=== PATIENT | female | born 1960 | race Caucasian/White ===

== ENCOUNTER 2023-12-31 15:13 | Observation (INO) ==
[2023-12-31] MEDS ORDERED: NovoLIN R (or HumuLIN R) SUBCUT PRN (16:10)
[2023-12-31 17:08] LABS: BASOPHILS # (AUTO) 0.1 X10^3/uL (0.0-0.1); BASOPHILS % (AUTO) 0.9 % (0.2-1.0); EOSINOPHILS # (AUTO) 0.4 x10^3/uL (0.0-0.2); EOSINOPHILS % (AUTO) 4.6 % (0.9-2.9); LYMPHOCYTES # (AUTO) 3.2 X10^3/uL (1.3-2.9); LYMPHOCYTES % (AUTO) 36.2 % (21.0-51.0); MEAN CORPUSCULAR HEMOGLOBIN 31.7 pg (27.0-34.0); MEAN CORPUSCULAR HGB CONC 34.3 g/dL (33.0-35.0); MEAN CORPUSCULAR VOLUME 92.7 fL (80.0-100.0); MEAN PLATELET VOLUME 8.2 fL (7.4-11.0); MONOCYTES # (AUTO) 0.5 x10^3/uL (0.3-0.8); MONOCYTES % (AUTO) 6.2 % (0.0-13.0); NEUTROPHILS # (AUTO) 4.6 x10^3/uL (2.2-4.8); NEUTROPHILS % (AUTO) 52.1 % (42.0-75.0); PLATELET COUNT 296 X10^3/uL (150.0-450.0); RED CELL DISTRIBUTION WIDTH 14.6 % (11.6-16.5); WHITE BLOOD COUNT 8.8 X10^3/uL (3.6-10.0)
[2023-12-31 17:24] LABS: BLOOD UREA NITROGEN 13 mg/dL (7-18); CALCIUM 9.7 mg/dL (8.5-10.1); CARBON DIOXIDE 27.8 mmol/L (21-32); CHLORIDE 101 mmol/L (98-107); COR NA(FOR HYPERGLY) 139 mmol/L (136-145); CREATININE 1.17 mg/dL (0.55-1.02); GLUCOSE 117 mg/dL (65-99); POTASSIUM 3.6 mmol/L (3.5-5.1); SODIUM 139 mmol/L (136-145); eGFR NON BLACK RACES 50 (>60)
[2023-12-31] MEDS: LR 1,000 ML IV 1,000 ML IV SCH (17:40)
[2023-12-31] MEDS: DILAUDID INJ IVP PRN (18:26)
--- NOTE | 2023-12-31 19:30 | CT ---
EXAM: CTA AORTA WITH RUNOFF HISTORY: Ischemic left leg. pt had vascular surgery last week; COMPARISON: August 10, 2023 TECHNIQUE: Axial CT images of the abdomen, pelvis and lower extremities were obtained prior to and after the ad ministration of mL IV contrast during the arterial phase. Images were reformatted with a 3D angiograp hic technique for further evaluation. Radiation dose: 1422.12 mGy-cm total DLP FINDINGS: Aorta: Atherosclerotic changes with no aneurysm. No clinically significant stenosis or occlusion. Mesenteric arteries/Celiac trunk: No clinically significant stenosis, occlusion or aneurysm. Renal arteries: No clinically significant stenosis, occlusion or aneurysm. Right iliac arteries: Atherosclerotic changes. No clinically significant stenosis, occlusion or aneur ysm. Stent in the right external iliac artery. Left iliac arteries: Atherosclerotic changes. No clinically significant stenosis, occlusion or aneury sm. Right femoral arteries/popliteal artery: Atherosclerotic changes. No clinically significant stenosis, occlusion or aneurysm. Left femoral arteries/popliteal artery: Atherosclerotic changes. Left common femoral artery is paten t. Age indeterminate occlusion of the left superficial femoral artery which has occurred since the p revious exam. Reconstitution at the popliteal hiatus. Right infrapopliteal arteries: Atherosclerotic changes. No occlusion or aneurysm. 3 vessel runoff. Left infrapopliteal arteries: Atherosclerotic changes. Age indeterminate occlusion of the left peron eal artery which has occurred since the previous exam. Lung bases are clear. No acute osseous abnormality. Stomach and proximal small bowel appear normal. Solid visceral organs of the upper abdomen are unremarkable. Status post cholecystectomy. No intra or extrahepatic biliary duct dilatation. IVC filter in place. Homogeneous enhancement of the kidneys without hydronephrosis or hydroureter. No urinary calculus identified. Urinary bladder is unremarkable. Colonic diverticulosis without diverticulitis. Otherwise, unremarkable appearance of the small and large bowel. No evidence of acute appendicitis. Status post hysterectomy. No pneumoperitoneum. No free intra-abdominal fluid. No adenopathy. IMPRESSION: 1. 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 Reconstitution at the popliteal hiatus. 2. Age indeterminate occlusion of the left peroneal artery which has occurred since the previous exam . 3. No acute intra-abnormality identified. 4. Colonic diverticulosis without diverticulitis. THIS IS AN ELECTRONICALLY VERIFIED FINAL REPORT 12/31/2023 7:26 PM - Electronically signed by Pb Oro MD
[2023-12-31] MEDS: SNACK - Diabetic Appropriate PO SCH (20:50)
[2023-12-31] MEDS: LOVENOX INJ 100 MG SYR SC SCH (20:52)
[2023-12-31] MEDS: OMNIPAQUE 350 mg/mL 50 mL BTL 50 ML ONE (21:31)
[2023-12-31] MEDS: OMNIPAQUE 350 mg/mL 100 mL BTL 100 ML ONE (21:31)
[2023-12-31] MEDS: NS 100 ML IV 100 ML ONE (21:31)
[2024-01-01] MEDS: HIBICLENS WASH EXT ONE (05:28)
[2024-01-01] MEDS: NOZIN NASAL SANITIZER TP ONE (05:28)
[2024-01-01] MEDS: ZOFRAN INJ 4 MG VIAL IVP PRN (07:55)
[2024-01-01] MEDS: NS 1,000 ML IV 1,000 ML ONE (14:15)
[2024-01-01] MEDS: ANCEF VIAL 1 GRAM ONE (15:05)
[2024-01-01] MEDS: NS 100 ML IV 100 ML ONE (15:05)
[2024-01-01] MEDS: OFIRMEV IV 1000 MG VIAL 1,000 MG/100 ML VIAL IV ONE (15:16)
[2024-01-01] MEDS ORDERED: KETAMINE HCL ONE (15:16)
[2024-01-01] MEDS: FENTANYL VIAL INJ 100 mcg ONE (15:16)
[2024-01-01] MEDS: PEPCID 20 MG VIAL ONE (15:16)
[2024-01-01] MEDS: ZOFRAN INJ 4 MG VIAL ONE (15:16)
[2024-01-01] MEDS: PRECEDEX INJ VIAL ONE (15:16)
[2024-01-01] MEDS ORDERED: XYLOCAINE 2 % (PLAIN) ONE (15:16)
[2024-01-01] MEDS: VERSED ONE (15:16)
[2024-01-01] MEDS: DIPRIVAN VIAL 20 ML ONE ×2 (15:16→16:26)
[2024-01-01] MEDS: DECADRON INJ ONE (15:27)
[2024-01-01] MEDS: EPHEDRINE SULFATE INJ ONE (15:31)
[2024-01-01] MEDS: VISIPAQUE 50 ML ONE (15:35)
[2024-01-01] MEDS: HEPARIN SODIUM IN D5W 75,000 UNITS/1,500 ML BAG ONE (15:35)
[2024-01-01] MEDS: VISIPAQUE 100 ML ONE (15:35)
[2024-01-01] MEDS: MARCAINE 0.5% ONE (15:35)
[2024-01-01] MEDS: HEPARIN SODIUM INJ 5000 UNITS ONE ×2 (15:39→16:38)
[2024-01-01] MEDS: NEO-SYNEPHRINE INJ ONE (15:46)
[2024-01-01] MEDS: PROTAMINE SULFATE 50 MG VIAL ONE (17:00)
--- NOTE | 2024-01-01 17:15 | OR.IMMED ---
IMMEDIATE POST-OP NOTE Immediate Post-Op Note Date of surgery/procedure: 01/01/24 Pre-Op Diagnosis: Critical ischemia left leg Post-Op Diagnosis: same Procedure: diagnostic aortogram, diagnostic arteriogram left leg, atherectomy and sdrug coated balloon angioplasty of the entire left superficial femoral artery, angioplasty and tire left peroneal artery Description of Procedure: dictated Surgeon/Technology Officer: Sean Findings: completely occluded left superficial artery from just beyond its takeoff down to the adductor canal, occluded left posterior tibial artery. significant disease of both anterior tibial and peroneal arteries all the way to the ankle but the vessels do go to the ankle Estimated Blood Loss: 150 cc Complications: none Progress Notes: to floor , dicscharge home later tonight
[2024-01-01] MEDS ORDERED: DILAUDID INJ IVP PRN (17:20)
[2024-01-01] MEDS ORDERED: BENADRYL INJ 50 MG VIAL IVP PRN (17:20)
[2024-01-01] MEDS ORDERED: ZOFRAN INJ 4 MG VIAL IVP PRN (17:20)
[2024-01-01] MEDS: TORADOL 30 MG VIAL ONE (17:24)
[2024-01-01] MEDS: DUONEB 0.5 MG/3 MG (3 mL) NEB ONE (17:42)
--- NOTE | 2024-01-01 18:12 | EKG ---
Test Reason : chest pain Blood Pressure : */* mmHG Vent. Rate : 84 BPM Atrial Rate : 84 BPM P-R Int : 178 ms QRS Dur : 82 ms QT Int : 382 ms P-R-T Axes : 82 52 75 degrees QTc Int : 451 ms Sinus rhythm with premature supraventricular complexes Otherwise normal ECG Confirmed by Daniel Sanchez MD ([id number]) on 01/02/2024 7:39:35 AM Referred By: Confirmed By: Daniel Sanchez MD
[2024-01-01 20:21] VITALS: BP 93/51; PULSE 91; RESP 18; TEMP 98; O2SAT 97
--- NOTE | 2024-01-01 21:01 | W.DIS.FURT ---
Summary of Discharge Discharge Summary of Date Date of Exam: 01/01/24 Admission Date Date of Admission: 12/31/23 Admission Diagnosis Hospital Course: 63 year old female who has had bilateral lower extremity arterial interventions. The left leg was done in October and the right leg was done approximately 1 week ago. In follow up yesterday in the office the patient c/o severe left leg pain. The right leg was warm with good doppler signals at the ankle. Patient was admitted and CT angiogram showed complete occlusion of the left superficial femoral artery beginning at it's takeoff With reconstitution of the popliteal artery with disease of the left posterior tibial and peroneal arteries. In October the patient had had atherectomy and Drug coated balloon angioplasty of the distal left superficial femoral artery and popliteal artery with peroneal artery balloon angioplasty. Patient was admitted and placed on subcutaneous Lovenox at a therapeutic dose. Patient taken to the operating suite today where she underwent atherectomy and drug coated balloon angioplasty of the entire left superficial artery and angioplasty of the left peroneal artery. Patient had complained have some chest pain in the recovery room. EKG was normal. Cardiac enzymes were normal. Chest X-ray was normal and this pain resolved. She is tolerating a diet will be discharged today on her usual medications to include aspirin daily. She Will Follow up with me in 1 week. Vital Signs: Vital Signs (72 hours) 12/31/23 17:01 12/31/23 16:27 12/31/23 16:30 Temperature 98.3 F Pulse Rate Pulse Rate [Right Brachial] 89 Respiratory Rate 20 Blood Pressure Blood Pressure [Left Arm] Blood Pressure [Right Arm] 164/95 O2 Sat by Pulse Oximetry 100 Oxygen Delivery Method Room Air Room Air Room Air Oxygen Flow Rate FIO2% 12/31/23 18:26 12/31/23 18:56 12/31/23 19:00 Temperature Pulse Rate Pulse Rate [Right Brachial] Respiratory Rate 20 21 Blood Pressure Blood Pressure [Left Arm] Blood Pressure [Right Arm] O2 Sat by Pulse Oximetry Oxygen Delivery Method Room Air Oxygen Flow Rate FIO2% 12/31/23 20:52 12/31/23 23:19 12/31/23 21:22 Temperature Pulse Rate Pulse Rate [Right Brachial] Respiratory Rate 21 20 19 Blood Pressure Blood Pressure [Left Arm] Blood Pressure [Right Arm] O2 Sat by Pulse Oximetry Oxygen Delivery Method Oxygen Flow Rate FIO2% 12/31/23 20:00 01/01/24 00:00 12/31/23 23:49 Temperature 98.1 F 98.2 F Pulse Rate Pulse Rate [Right Brachial] 73 76 Respiratory Rate 18 15 18 Blood Pressure Blood Pressure [Left Arm] 123/84 Blood Pressure [Right Arm] 117/59 O2 Sat by Pulse Oximetry 100 97 Oxygen Delivery Method Room Air Room Air Oxygen Flow Rate FIO2% 01/01/24 03:25 01/01/24 05:27 01/01/24 04:00 Temperature 98.1 F Pulse Rate Pulse Rate [Right Brachial] 77 Respiratory Rate 22 20 18 Blood Pressure Blood Pressure [Left Arm] 115/73 Blood Pressure [Right Arm] O2 Sat by Pulse Oximetry 98 Oxygen Delivery Method Room Air Oxygen Flow Rate FIO2% 01/01/24 03:55 01/01/24 05:57 01/01/24 07:00 Temperature Pulse Rate Pulse Rate [Right Brachial] Respiratory Rate 19 20 Blood Pressure Blood Pressure [Left Arm] Blood Pressure [Right Arm] O2 Sat by Pulse Oximetry Oxygen Delivery Method Room Air Oxygen Flow Rate FIO2% 01/01/24 07:55 01/01/24 10:59 01/01/24 13:12 Temperature Pulse Rate Pulse Rate [Right Brachial] Respiratory Rate 20 20 20 Blood Pressure Blood Pressure [Left Arm] Blood Pressure [Right Arm] O2 Sat by Pulse Oximetry Oxygen Delivery Method Oxygen Flow Rate FIO2% 01/01/24 08:00 01/01/24 08:25 01/01/24 12:00 Temperature 97.8 F 98.0 F Pulse Rate Pulse Rate [Right Brachial] 72 70 Respiratory Rate 19 20 19 Blood Pressure Blood Pressure [Left Arm] 105/57 112/61 Blood Pressure [Right Arm] O2 Sat by Pulse Oximetry 98 97 Oxygen Delivery Method Room Air Room Air Oxygen Flow Rate FIO2% 01/01/24 11:29 01/01/24 14:25 01/01/24 13:42 Temperature 97.1 F L Pulse Rate 79 Pulse Rate [Right Brachial] Respiratory Rate 20 18 20 Blood Pressure 122/71 Blood Pressure [Left Arm] Blood Pressure [Right Arm] O2 Sat by Pulse Oximetry 98 Oxygen Delivery Method Room Air Oxygen Flow Rate FIO2% 01/01/24 17:24 01/01/24 17:12 01/01/24 17:17 Temperature 97.1 F L Pulse Rate 86 83 Pulse Rate [Right Brachial] Respiratory Rate 16 18 18 Blood Pressure 126/69 Blood Pressure [Left Arm] Blood Pressure [Right Arm] O2 Sat by Pulse Oximetry 100 100 Oxygen Delivery Method Nasal Cannula Nasal Cannula Oxygen Flow Rate FIO2% 01/01/24 17:22 01/01/24 17:27 01/01/24 17:32 Temperature Pulse Rate 83 86 86 Pulse Rate [Right Brachial] Respiratory Rate 18 18 18 Blood Pressure Blood Pressure [Left Arm] Blood Pressure [Right Arm] O2 Sat by Pulse Oximetry 100 100 100 Oxygen Delivery Method Nasal Cannula Nasal Cannula Nasal Cannula Oxygen Flow Rate FIO2% 01/01/24 17:37 01/01/24 17:42 01/01/24 18:14 Temperature Pulse Rate 86 86 Pulse Rate [Right Brachial] Respiratory Rate 18 18 20 Blood Pressure 104/58 Blood Pressure [Left Arm] Blood Pressure [Right Arm] O2 Sat by Pulse Oximetry 100 100 Oxygen Delivery Method Nasal Cannula Nasal Cannula Oxygen Flow Rate FIO2% 01/01/24 18:10 01/01/24 18:05 01/01/24 18:20 Temperature 97.9 F 97.9 F Pulse Rate Pulse Rate [Right Brachial] 94 H 91 H Respiratory Rate 20 20 Blood Pressure Blood Pressure [Left Arm] Blood Pressure [Right Arm] 113/81 96/55 O2 Sat by Pulse Oximetry 100 98 Oxygen Delivery Method Nasal Cannula Oxygen Flow Rate 2 FIO2% 01/01/24 18:35 01/01/24 18:44 01/01/24 18:50 Temperature 97.9 F Pulse Rate Pulse Rate [Right Brachial] 95 H 93 H Respiratory Rate 20 19 19 Blood Pressure Blood Pressure [Left Arm] Blood Pressure [Right Arm] 93/63 96/55 O2 Sat by Pulse Oximetry 95 98 Oxygen Delivery Method Oxygen Flow Rate FIO2% 01/01/24 19:05 01/01/24 20:05 Temperature 98.0 F Pulse Rate Pulse Rate [Right Brachial] 103 H 91 H Respiratory Rate 21 18 Blood Pressure Blood Pressure [Left Arm] Blood Pressure [Right Arm] 93/59 93/51 O2 Sat by Pulse Oximetry 98 97 Oxygen Delivery Method Oxygen Flow Rate FIO2% Labs: Laboratory Last Values WBC 8.8 X10^3/uL (3.6-10.0) 12/31/23 16:54 RBC 4.10 X10^6/uL (3.5-5.4) 12/31/23 16:54 Hgb 13.0 g/dL (12.0-16.0) 12/31/23 16:54 Hct 38.0 % (36.0-47.0) 12/31/23 16:54 MCV 92.7 fL (80.0-100.0) 12/31/23 16:54 MCH 31.7 pg (27.0-34.0) 12/31/23 16:54 MCHC 34.3 g/dL (33.0-35.0) 12/31/23 16:54 RDW 14.6 % (11.6-16.5) 12/31/23 16:54 Plt Count 296 X10^3/uL (150.0-450.0) 12/31/23 16:54 MPV 8.2 fL (7.4-11.0) 12/31/23 16:54 Neut % (Auto) 52.1 % (42.0-75.0) 12/31/23 16:54 Lymph % (Auto) 36.2 % (21.0-51.0) 12/31/23 16:54 [place] % (Auto) 6.2 % (0.0-13.0) 12/31/23 16:54 Eos % (Auto) 4.6 % (0.9-2.9) H 12/31/23 16:54 Baso % (Auto) 0.9 % (0.2-1.0) 12/31/23 16:54 Neut # (Auto) 4.6 x10^3/uL (2.2-4.8) 12/31/23 16:54 Lymph # (Auto) 3.2 X10^3/uL (1.3-2.9) H 12/31/23 16:54 [place] # (Auto) 0.5 x10^3/uL (0.3-0.8) 12/31/23 16:54 Eos # (Auto) 0.4 x10^3/uL (0.0-0.2) H 12/31/23 16:54 Baso # (Auto) 0.1 X10^3/uL (0.0-0.1) 12/31/23 16:54 Absolute Nucleated RBC 0.0 /100WBC 12/31/23 16:54 Sodium 139 mmol/L (136-145) 12/31/23 16:54 Corrected Sodium 139 mmol/L (136-145) 12/31/23 16:54 Potassium 3.6 mmol/L (3.5-5.1) 12/31/23 16:54 Chloride 101 mmol/L (98-107) 12/31/23 16:54 Carbon Dioxide 27.8 mmol/L (21-32) 12/31/23 16:54 BUN 13 mg/dL (7-18) 12/31/23 16:54 Creatinine 1.17 mg/dL (0.55-1.02) H 12/31/23 16:54 Est GFR (MDRD) Af Amer > 60 (>60) 12/31/23 16:54 Est GFR (MDRD) Non-Af 50 (>60) L 12/31/23 16:54 Glucose 117 mg/dL (65-99) H 12/31/23 16:54 Calcium 9.7 mg/dL (8.5-10.1) 12/31/23 16:54 Creatine Kinase 94 Units/L (26-192) 01/01/24 17:41 Troponin I High Sens 9.2 ng/L (4.0-60.0) 01/01/24 17:41 Reason For Visit: CRITICAL ISCHEMIA TO PTS LLE Discharge Date Discharge Date: 01/01/24 Discharge Diagnosis All Active Problems (Updated 01/01/24 @ 20:59 by Gentry Estrada) Atherosclerosis of pam[place]key arteries of extremities with rest pain, left leg (Acute) Uncontrolled type 2 diabetes mellitus (Acute) Abdominal pain (Acute) Abnormal weight loss (Acute) Discomfort of vagina (Acute) Allergic reaction (Acute) Pruritus (Acute) Plan of Treatment: Continue with present treatment and follow up plan. Pt is to keep follow up appointment as instructed and take medications as ordered. Discharge Medications Discharge Medications: No Known Allergies Allergy (Verified 11/01/23 09:37) CONTINUE taking the following medications aspirin 81 mg tablet 81 mg PO QDAY 12/31/23 [History] glimepiride 2 mg tablet 2 mg PO QAM 12/31/23 [History] glimepiride 4 mg tablet 4 mg PO QAM 12/31/23 [History] semaglutide 0.25 mg or 0.5 mg (2 mg/3 mL) subcutaneous pen injector (Finco) 0.25 mg subcut QWEEK 12/31/23 [History] Discharge Disposition Assessment: hospital course Discharge Plan Discharge Plan Hospital Course: 63 year old female who has had bilateral lower extremity arterial interventions. The left leg was done in October and the right leg was done approximately 1 week ago. In follow up yesterday in the office the patient c/o severe left leg pain. The right leg was warm with good doppler signals at the ankle. Patient was admitted and CT angiogram showed complete occlusion of the left superficial femoral artery beginning at it's takeoff With reconstitution of the popliteal artery with disease of the left posterior tibial and peroneal arteries. In October the patient had had atherectomy and Drug coated balloon angioplasty of the distal left superficial femoral artery and popliteal artery with peroneal artery balloon angioplasty. Patient was admitted and placed on subcutaneous Lovenox at a therapeutic dose. Patient taken to the operating suite today where she underwent atherectomy and drug coated balloon angioplasty of the entire left superficial artery and angioplasty of the left peroneal artery. Patient had complained have some chest pain in the recovery room. EKG was normal. Cardiac enzymes were normal. Chest X-ray was normal and this pain resolved. She is tolerating a diet will be discharged today on her usual medications to include aspirin daily. She Will Follow up with me in 1 week. Patient Disposition: 01 HOME, SELF-CARE Condition: Stable Health Concerns: Post Hospitalization: new medications and changes needed to prevent readmission or further decline. Pt educated and given instructions on all concerns. Care Plan Goals: see hospitalm course Plan of Treatment: Continue with present treatment and follow up plan. Pt is to keep follow up appointment as instructed and take medications as ordered. Assessment: hospital course Prescription drug monitoring program results: PDMP reviewed with concerns identified Prescriptions: Continued glimepiride 2 mg tablet 2 mg PO QAM glimepiride 4 mg tablet 4 mg PO QAM aspirin 81 mg Tablet 81 mg PO QDAY Ozempic 0.25 mg or 0.5 mg (2 mg/3 mL) pen injector 0.25 mg SUBCUT QWEEK Orders to Discharge Patient Discharge Orders: Discharge (Routine); Ordered 01/01/24 Ordered By: Gentry Estrada Follow ups/Referrals Follow ups/Referrals: Gentry Estrada [Primary Care Provider] - 1 WEEK Instructions Instructions: Endovascular Therapy for Peripheral Vascular Disease: What to Know After Stand Alone Forms: Excuse From Work or School, Post Hospital Follow Up Care
--- NOTE | 2024-01-01 21:11 | DR.H&P ---
H&P History & Physical for Day of: H&P Date: 01/01/24 Chief Complaint Chief Complaint: left leg pain History of Present Illness History of Present Illness: This is a 63 year old female who has had bilateral lowere extremity arterial interventions. The left leg was done 3 months ago. The right leg was done 1 week ago. In follow-up of the right leg there was no problem however she complained of significant pain in the left leg consistent with rest pain and had a cool left foot. She was admitted and CT angiogram confirmed complete occlusion of the left superficial femoral artery beginning at its takeoff with reconstitution of the popliteal artery, occluded left posterior tibial artery and severely diseased peroneal and anterior tibial arteries Past Medical History Past Medical History: Anxiety, Depression and Diabetes Past Surgical History Surgical History: Hysterectomy Family History Family Medical History: Diabetes Mellitus Social History Does patient currently use any type of tobacco product: Yes Have you used tobacco products in the last 12 months: Yes Type of Tobacco Use: None How many years tobacco product used: 48 Packs per day or dips/chews per day: 1 Does any household member use tobacco: No Alcohol Use: None Drug Use: None Medications Home Medications: Home Medications Medication Instructions Recorded Confirmed Type aspirin 81 mg tablet 81 mg PO QDAY 12/31/23 12/31/23 History glimepiride 2 mg tablet 2 mg PO QAM 12/31/23 12/31/23 History glimepiride 4 mg tablet 4 mg PO QAM 12/31/23 12/31/23 History semaglutide 0.25 mg or 0.5 mg (2 0.25 mg subcut QWEEK 12/31/23 12/31/23 History mg/3 mL) subcutaneous pen injector (Ozempic) Allergies Allergies Allergy/AdvReac Type Severity Reaction Status Date / Time No Known Allergies Allergy Verified 11/01/23 09:37 Labs 12/31/23 16:54 12/31/23 16:54 Labs: Laboratory WBC 8.8 X10^3/uL (3.6-10.0) 12/31/23 16:54 RBC 4.10 X10^6/uL (3.5-5.4) 12/31/23 16:54 Hgb 13.0 g/dL (12.0-16.0) 12/31/23 16:54 Hct 38.0 % (36.0-47.0) 12/31/23 16:54 MCV 92.7 fL (80.0-100.0) 12/31/23 16:54 MCH 31.7 pg (27.0-34.0) 12/31/23 16:54 MCHC 34.3 g/dL (33.0-35.0) 12/31/23 16:54 RDW 14.6 % (11.6-16.5) 12/31/23 16:54 Plt Count 296 X10^3/uL (150.0-450.0) 12/31/23 16:54 MPV 8.2 fL (7.4-11.0) 12/31/23 16:54 Neut % (Auto) 52.1 % (42.0-75.0) 12/31/23 16:54 Lymph % (Auto) 36.2 % (21.0-51.0) 12/31/23 16:54 [place] % (Auto) 6.2 % (0.0-13.0) 12/31/23 16:54 Eos % (Auto) 4.6 % (0.9-2.9) H 12/31/23 16:54 Baso % (Auto) 0.9 % (0.2-1.0) 12/31/23 16:54 Neut # (Auto) 4.6 x10^3/uL (2.2-4.8) 12/31/23 16:54 Lymph # (Auto) 3.2 X10^3/uL (1.3-2.9) H 12/31/23 16:54 [place] # (Auto) 0.5 x10^3/uL (0.3-0.8) 12/31/23 16:54 Eos # (Auto) 0.4 x10^3/uL (0.0-0.2) H 12/31/23 16:54 Baso # (Auto) 0.1 X10^3/uL (0.0-0.1) 12/31/23 16:54 Absolute Nucleated RBC 0.0 /100WBC 12/31/23 16:54 Sodium 139 mmol/L (136-145) 12/31/23 16:54 Corrected Sodium 139 mmol/L (136-145) 12/31/23 16:54 Potassium 3.6 mmol/L (3.5-5.1) 12/31/23 16:54 Chloride 101 mmol/L (98-107) 12/31/23 16:54 Carbon Dioxide 27.8 mmol/L (21-32) 12/31/23 16:54 BUN 13 mg/dL (7-18) 12/31/23 16:54 Creatinine 1.17 mg/dL (0.55-1.02) H 12/31/23 16:54 Est GFR (MDRD) Af Amer > 60 (>60) 12/31/23 16:54 Est GFR (MDRD) Non-Af 50 (>60) L 12/31/23 16:54 Glucose 117 mg/dL (65-99) H 12/31/23 16:54 Calcium 9.7 mg/dL (8.5-10.1) 12/31/23 16:54 Creatine Kinase 94 Units/L (26-192) 01/01/24 17:41 Troponin I High Sens 9.2 ng/L (4.0-60.0) 01/01/24 17:41 Review of Systems Constitutional: See HPI Eyes: No Symptoms Reported ENT: No Symptoms Reported Respiratory: No Symptoms Reported Cardiovascular: No Symptoms Reported Gastrointestinal: No Symptoms Reported Genitourinary: No Symptoms Reported Musculoskeletal: No Symptoms Reported Skin: No Symptoms Reported Neurological: No Symptoms Reported Physical Exam Vital Signs: Vital Signs Temperature 98.0 F Temperature 97.9 F Temperature 97.9 F Temperature 97.9 F Temperature 97.1 F Temperature 97.1 F Pulse Rate [Right Brachial] 91 Pulse Rate [Right Brachial] 103 Pulse Rate [Right Brachial] 93 Pulse Rate [Right Brachial] 95 Pulse Rate [Right Brachial] 91 Pulse Rate [Right Brachial] 94 Pulse Rate 86 Pulse Rate 86 Pulse Rate 86 Pulse Rate 86 Pulse Rate 83 Pulse Rate 83 Pulse Rate 86 Pulse Rate 79 Respiratory Rate 18 Respiratory Rate 21 Respiratory Rate 19 Respiratory Rate 19 Respiratory Rate 20 Respiratory Rate 20 Respiratory Rate 20 Respiratory Rate 20 Respiratory Rate 18 Respiratory Rate 18 Respiratory Rate 18 Respiratory Rate 18 Respiratory Rate 16 Respiratory Rate 18 Respiratory Rate 18 Respiratory Rate 18 Respiratory Rate 18 Respiratory Rate 20 Respiratory Rate 20 Blood Pressure [Right Arm] 93/51 Blood Pressure [Right Arm] 93/59 Blood Pressure [Right Arm] 96/55 Blood Pressure [Right Arm] 93/63 Blood Pressure [Right Arm] 96/55 Blood Pressure [Right Arm] 113/81 Blood Pressure 104/58 Blood Pressure 126/69 Blood Pressure 122/71 O2 Sat by Pulse Oximetry 97 O2 Sat by Pulse Oximetry 98 O2 Sat by Pulse Oximetry 98 O2 Sat by Pulse Oximetry 95 O2 Sat by Pulse Oximetry 98 O2 Sat by Pulse Oximetry 100 O2 Sat by Pulse Oximetry 100 O2 Sat by Pulse Oximetry 100 O2 Sat by Pulse Oximetry 100 O2 Sat by Pulse Oximetry 100 O2 Sat by Pulse Oximetry 100 O2 Sat by Pulse Oximetry 100 O2 Sat by Pulse Oximetry 100 O2 Sat by Pulse Oximetry 98 Oriented: Normal, Time, Person and Place Eyes: Normal Ear: Normal Nose: Normal Throat: Normal Respiratory: Clear Throughout Cardiovascular: Normal and Other (biphasic Doppler signals of the right ankle. absent doppler signals of the left ankle ) : Normal Auscultation: Bowel Sounds: Normal Palpation: Normal Tenderness: Normal Skin: Normal Musculoskeletal: Normal Psychiatric: Normal Mood Description: Calm Affect: Normal Speech Pattern: Clear and Appropriate Assessment/Plan (1) Atherosclerosis of [place] arteries of extremities with rest pain, left leg: Status: Acute Plan: admit, therapeutic Lovenox, plan left leg arterial intervention tomorrow . (2) Uncontrolled type 2 diabetes mellitus: Qualifiers: Glycemic state: with hyperglycemia Qualified Code(s): E11.65 - Type 2 diabetes mellitus with hyperglycemia Status: Acute Plan: sliding scale insulin
--- NOTE | 2024-01-02 07:32 | RAD ---
EXAM:Portable chestHISTORY:Chest painCOMPARISON:11/01/2023FINDINGS:Heart size is normal. Isabel are normal. Lung soares are clear. No pleural effusion or pneumothorax identified. Bony thorax is unremarkable.IMPRESSION:No significant abnormality identifiedTHIS IS AN ELECTRONICALLY VERIFIED FINAL [id number]/02/2024 7:28 AM - Electronically signed by Roldan Jurado MD
--- NOTE | 2024-01-09 15:37 | DR.OPNOTE ---
OP NOTE Pre-Op Diagnosis: critical ischemia right leg Post-Op Diagnosis: same Procedure Date Date Of Procedure: 01/01/24 Procedure: PROCEDURE: DIAGNOSTIC AORTOGRAM, DIAGNOSTIC ARTERIOGRAM LEFT LEG, ATHERECTOMY AND DRUG COATRED BALLOON ANGIOPLASTY LEFT SUPERFICIAL FEMORAL ARTERY, ANGIOPLASTY LEFT PERONEAL ARTERY NARRATIVE : The patient was taken to the operative suite and placed in the supine position. The right groin and entire left leg were prepped and draped in sterile fashion. The patient was given intravenous sedation supervised by myself. Time out for the procedure obtained. Ultrasound used to identify the right femoral artery and the skin overlying it infiltrated with 0.5% Marcaine. Ultrasound then used to guide puncture of the right femoral artery and a 0.012 inch guide wire was placed. Incision made over the guide wire at the skin edge with a # 11 knife blade and a micro sheath placed over the guide wire into the right femoral artery The small guidewire exchanged for a 0.035 inch Advantage glide wire and the micro sheath exchanged for a 5 Fr vascular sheath. Patient given 5000 units of intravenous heparin. Omni catheter was placed over the guide wire into the aorta and diagnostic aortogram carried out with the power injector showing normal aorta and iliac arteries . Omni catheter was used to steer the guide wire down the left common iliac artery to the distal left external iliac artery . Omni catheter was exchanged for a [place] catheter and sequential arteriograms carried out of the left lower extremity showing completely occluded left superficial femoral artery starting just beyond it's takeoff with reconstitution of the popliteal artery at the adductor canal with occluded left posterior tibial artery , and diseased but patent posterior tibial and peroneal arteries all tjhe way to the ankle .The 5 Fr sheath in the right groin then exchanged for a 7 Fr destination [place] sheath which was parked in the distal left external iliac artery.[place] theter and the guide wire were used to traverse the arteries of the left leg ultimately ending in the left peroneal artery . This was selective catheterization. 0.035 inch wire removed and exchanged for a 0.014 inch wire. Over this wire we placed the [place] atherectomy device and performed atherectomy of the entire left superficial femoral artery . At this point we performed drug coated balloon dilatation of the left superficail femoral artey using two [place] 6 x 200 mm drug coated balloons and one [place] 6 x 60 mm drug coated balloon , inflating each for three minutes sequentially and end to end in the left superficial femoral artery. The left peroneal artery was balloon dilated witha [place] 3 mmx 220 mm angioplasty balloon. At the completion of this a follow up arteriogram showed excellent result . All wires and devices removed. The 7 Fr sheath was pulled back into the aorta and a 0.035 inch wire placed. The destination sheath exchanged for an Angioseal device used to close the puncture of the right femoral artery. .Dressing applied to the right groin. The patient taken to [facility] in good condition. Type of Anesthesia: Local (0.5% Marcaine ) Anesthesia Comment: plus MAC Findings: completely occluded left superficial femoral artery from just beyond it's takeoff down to adductor canal , occluded left posterior tibial artery, significant disaease of both left anterior tibial and peroneal arteries , both these arteries go to the ankle Type of Fluids Used:: Lactated Ringers Total Amount of Fluid Infused:: 600 cc EBL: 150 cc Complications:: none Needle/Sponge Count:: correct Disposition/Condition: Pt. tolerated procedure without difficulty. Taken to [facility] in stable condition.
== END 2024-01-01 21:14 | disposition home or self-care (01) ==
LOC: MED/SURG
PROVIDERS: ADMIT Surgery; ATTEND Surgery
DX: R07.89 Other chest pain; I70.222 Atherosclerosis of native arteries of extremities with rest pain, left leg; F41.8 Other specified anxiety disorders; Z72.0 Tobacco use; E11.65 Type 2 diabetes mellitus with hyperglycemia